=== PATIENT | female | born 1945 | race Caucasian/White ===

== ENCOUNTER 2016-04-02 18:51 | Emergency (ER) | payer OTHER ==
[~2016-04-02] VITALS: Ht 170.2 cm; Wt 54.5 kg
[~2016-04-02 18:51] MED LIST: AMPICILLIN250 MG PO; ASPIR-LOW81 MG PO; ASPIRIN81 M1 PO; ATIVAN0.5 MG PO; COZAAR50 MG PO; LORAZEPAM0.5 MG PO; METOPROLOL SUCC50 MG PO; PREVACID SOLUTA30 MG PO; PREVACID SOLUTAB PO; TOPROL XL50 MG PO; Ultram PO; ~No Medications
[2016-04-03] MEDS ORDERED: PERCOCET 5/31 TABLET PO (02:07)
[2016-04-03 02:49] VITALS: BP 102/68
== END 2016-04-03 02:51 | disposition home or self-care (01) ==
LOC: EME 18:51 → EXP 18:51
DX: M79.605 Pain in left leg (principal); M25.552 Pain in left hip; R26.2 Difficulty in walking, not elsewhere classified; M79.89 Other specified soft tissue disorders; C85.90 Non-Hodgkin lymphoma, unspecified, unspecified site; I10 Essential (primary) hypertension; Z79.82 Long term (current) use of aspirin
CPT/HCPCS: 93971; 99281; 99284; J2270

== ENCOUNTER 2016-10-19 11:54 | Emergency (ER) | payer OTHER ==
[~2016-10-19] VITALS: Ht 167.6 cm; Wt 53.2 kg
[~2016-10-19 11:54] MED LIST changes: +PERCOCET 5/31 TABLET PO
[2016-10-19 12:29] LABS: EOSINOPHIL (%) 0.6 % (0-5); HEMATOCRIT 32.1 % (36.0-46.0); IMMATURE GRANULOCYTE (%) 0.6 % (0.0-0.7); INSTRUMENT ABS NEUTROPHIL CT 5.5 K/uL; LYMPHOCYTE COUNT 0.8 K/uL (1.0-2.8); MCH 29.6 PG (29.0-34.0); MCHC 32.4 G/DL (30.0-36.0); MCV 91.5 FL (83-99); MONOCYTE (%) 7.3 % (3-12); MONOCYTE COUNT 0.5 K/uL (0-0.8); NEUTROPHIL (%) 80.5 % (45-76); NEUTROPHIL COUNT 5.5 K/uL (1.8-6.4); PLATELET COUNT 134 K/uL (156-360); RBC DIS.WIDTH-CV 15.3 % (11.8-14.6); RED BLOOD COUNT 3.51 M/uL (3.80-5.20); WHITE BLOOD COUNT 6.9 K/uL (4.1-10.2)
[2016-10-19 12:44] LABS: CHLORIDE 103 mEq/L (99-109); POTASSIUM 3.9 mEq/L (3.7-5.4); SODIUM 137 mEq/L (136-147)
[2016-10-19 12:46] LABS: GLUCOSE 157 mg/dL (70-99)
[2016-10-19 12:47] LABS: ANION GAP 7 MEQ/L (2-14)
[2016-10-19 12:50] LABS: GFR ESTIMATE (CALCULATED) > 59 mL/min/
[2016-10-19 12:51] LABS: UREA NITROGEN (BUN) 13 mg/dL (9-23)
[2016-10-19] MEDS ORDERED: ELIQUIS5 MG PO (14:56)
[2016-10-19] MEDS ORDERED: AMLODIPINE BESY10 MG PO (15:00)
[2016-10-19] MEDS ORDERED: FUROSEMIDE20 MG PO (15:12)
[2016-10-19] MEDS ORDERED: NORCO 5/3251 TABLET PO (16:18)
[2016-10-19 16:39] VITALS: BP 118/62
== END 2016-10-19 16:40 | disposition home or self-care (01) ==
LOC: EME 11:54
PROVIDERS: Emergency Medicine
DX: S20.229A Contusion of unspecified back wall of thorax, initial encounter (principal); M51.26 Other intervertebral disc displacement, lumbar region; W18.30XA Fall on same level, unspecified, initial encounter; Y93.89 Activity, other specified; Z85.72 Personal history of non-Hodgkin lymphomas; K21.9 Gastro-esophageal reflux disease without esophagitis; I10 Essential (primary) hypertension
CPT/HCPCS: 72100; 72131; 80048; 85025; 99281; 99285

== ENCOUNTER → 2016-11-18 | Outpatient (CLI) | payer OTHER ==
[~2016-11-18] MED LIST changes: +AMLODIPINE BESY10 MG PO; +ELIQUIS5 MG PO; +FUROSEMIDE20 MG PO; +NORCO 5/3251 TABLET PO
== END | disposition home or self-care (01) ==
DX: R13.11 Dysphagia, oral phase (principal); R13.13 Dysphagia, pharyngeal phase; K92.0 Hematemesis; R63.4 Abnormal weight loss
CPT/HCPCS: 92611 GN; G8996 GN; G8997 GN; G8998 GN

== ENCOUNTER 2016-11-30 10:50 | Inpatient (IN) | payer OTHER ==
[~2016-11-30] VITALS: Ht 167.6 cm; Wt 46.0 kg
[2016-11-30 12:54] LABS: EOSINOPHIL (%) 1.2 % (0-5); HEMATOCRIT 32.7 % (36.0-46.0); IMMATURE GRANULOCYTE (%) 0.3 % (0.0-0.7); INSTRUMENT ABS NEUTROPHIL CT 1.9 K/uL; LYMPHOCYTE COUNT 0.9 K/uL (1.0-2.8); MCH 29.5 PG (29.0-34.0); MCHC 31.2 G/DL (30.0-36.0); MCV 94.5 FL (83-99); MEAN PLAT.VOLUME 10.6 uM^3 (9.5-12.4); MONOCYTE (%) 13.8 % (3-12); MONOCYTE COUNT 0.5 K/uL (0-0.8); NEUTROPHIL (%) 57.1 % (45-76); NEUTROPHIL COUNT 1.9 K/uL (1.8-6.4); PLATELET COUNT 127 K/uL (156-360); RBC DIS.WIDTH-SD 58.5 % (39-53); RED BLOOD COUNT 3.46 M/uL (3.80-5.20); WHITE BLOOD COUNT 3.3 K/uL (4.1-10.2)
[2016-11-30 13:02] LABS: CHLORIDE 102 mEq/L (99-109); POTASSIUM 3.6 mEq/L (3.7-5.4); SODIUM 139 mEq/L (136-147)
[2016-11-30 13:04] LABS: GLUCOSE 79 mg/dL (70-99)
[2016-11-30 13:05] LABS: ANION GAP 11 MEQ/L (2-14)
[2016-11-30 13:06] LABS: TOTAL BILIRUBIN 0.6 mg/dL (0.0-1.0)
[2016-11-30 13:08] LABS: ALKALINE PHOSPHATASE 40 IU/L (3-129); GFR ESTIMATE (CALCULATED) > 59 mL/min/
[2016-11-30 13:09] LABS: UREA NITROGEN (BUN) 13 mg/dL (9-23)
[2016-11-30 17:09] LABS: ADD MIUA? NO; BILIRUBIN NEGATIVE; BLOOD NEGATIVE; COLOR STRAW ((YELLOW)); GLUCOSE (STRIP) NEGATIVE; KETONES NEGATIVE; LEUKOCYTES NEGATIVE; NITRITE NEGATIVE; PROTEIN (STRIP) NEGATIVE; SPECIFIC GRAVITY 1.008 (1.000-1.030); UCUL ADDED? NO; UROBILINOGEN 0.2 MG/DL (0.2-1.0)
[2016-11-30 17:37] VITALS: BP 142/86
[2016-11-30 23:36] VITALS: BP 120/70
[2016-12-01 07:15] LABS: INTER. NORMALIZED RATIO 1.3; PROTHROMBIN TIME 14.1 SEC (10.2-12.9)
[2016-12-01 07:17] LABS: PTT 32.8 SEC (25-37)
[2016-12-01 07:22] LABS: ANION GAP 8 MEQ/L (2-14); CHLORIDE 109 MEQ/L (99-109); GFR ESTIMATE (CALCULATED) > 59 mL/min/; GLUCOSE 54 mg/dL (70-99); POTASSIUM 4.1 MEQ/L (3.7-5.4); SAMPLE HEMOLYSIS CHECK 0; SAMPLE ICTERIC CHECK 0; SAMPLE LIPEMIA CHECK 0; SODIUM 140 MEQ/L (136-147); UREA NITROGEN (BUN) 11 mg/dL (9-23)
[2016-12-01 08:06] VITALS: BP 124/65
[2016-12-01 16:18] VITALS: BP 126/62
[2016-12-01 23:42] VITALS: BP 116/74
[2016-12-02 08:22] VITALS: BP 168/78
[2016-12-02 08:23] VITALS: BP 133/88
[2016-12-02 23:40] VITALS: BP 122/60
[2016-12-03 07:48] VITALS: BP 121/58
[2016-12-03 15:53] VITALS: BP 110/50
[2016-12-03 18:05] LABS: ANION GAP 10 MEQ/L (2-14); CHLORIDE 105 MEQ/L (99-109); GFR ESTIMATE (CALCULATED) > 59 mL/min/; POTASSIUM 3.8 MEQ/L (3.7-5.4); SAMPLE HEMOLYSIS CHECK 0; SAMPLE ICTERIC CHECK 0; SAMPLE LIPEMIA CHECK 0; SODIUM 136 MEQ/L (136-147); UREA NITROGEN (BUN) 15 mg/dL (9-23)
[2016-12-03 18:11] LABS: GLUCOSE 99 mg/dL (70-99)
[2016-12-03 19:27] VITALS: BP 126/81
[2016-12-03 23:44] VITALS: BP 114/60
[2016-12-04 07:37] LABS: ALKALINE PHOSPHATASE 40 IU/L (3-129); ANION GAP 5 MEQ/L (2-14); CHLORIDE 108 MEQ/L (99-109); GFR ESTIMATE (CALCULATED) > 59 mL/min/; SAMPLE HEMOLYSIS CHECK 2; SAMPLE ICTERIC CHECK 0; SAMPLE LIPEMIA CHECK 0; SODIUM 140 MEQ/L (136-147); TOTAL BILIRUBIN 0.6 MG/DL (0.0-1.0); UREA NITROGEN (BUN) 15 mg/dL (9-23)
[2016-12-04 07:42] LABS: GLUCOSE 149 mg/dL (70-99); POTASSIUM 4.6 MEQ/L (3.7-5.4)
[2016-12-04 08:53] VITALS: BP 113/74
== END 2016-12-04 12:34 | disposition home health service (06) | DRG 391 ==
LOC: EME 10:50 → 5SOUTH 15:07 → EDOF 15:07 → ENRESERV 15:18 → 5SOUTH 17:18
PROVIDERS: Emergency Medicine; Hospitalist; Specialist
PROC: 0DH63UZ Insertion of Feeding Device into Stomach, Percutaneous Approach (ICD-10-PCS; principal; 2016-12-02)
DX: K22.0 Achalasia of cardia (principal); R13.12 Dysphagia, oropharyngeal phase; D61.818 Other pancytopenia; I48.2 Chronic atrial fibrillation; M35.9 Systemic involvement of connective tissue, unspecified; I10 Essential (primary) hypertension; R64 Cachexia; Z68.1 Body mass index [BMI] 19.9 or less, adult; E43 Unspecified severe protein-calorie malnutrition; E86.0 Dehydration; K29.70 Gastritis, unspecified, without bleeding; E78.5 Hyperlipidemia, unspecified; R62.7 Adult failure to thrive; Z92.21 Personal history of antineoplastic chemotherapy; Z85.72 Personal history of non-Hodgkin lymphomas; K21.9 Gastro-esophageal reflux disease without esophagitis; K44.9 Diaphragmatic hernia without obstruction or gangrene; Z79.01 Long term (current) use of anticoagulants
CPT/HCPCS: 36415; 71010; 80048; 80053; 81003; 85025; 85610; 85730; 94799; 97530 GP; 99281; 99285; J2250; J2270; J3480; J7030; S0028

== ENCOUNTER 2017-02-27 11:30 | Emergency (ER) | payer OTHER ==
[~2017-02-27] VITALS: Ht 165.1 cm; Wt 47.2 kg
[2017-02-27 15:21] VITALS: BP 115/75
== END 2017-02-27 15:21 | disposition home or self-care (01) ==
LOC: EME 11:30
DX: K94.23 Gastrostomy malfunction (principal); I10 Essential (primary) hypertension; E78.5 Hyperlipidemia, unspecified; C85.90 Non-Hodgkin lymphoma, unspecified, unspecified site; Z88.5 Allergy status to narcotic agent; Z88.6 Allergy status to analgesic agent
CPT/HCPCS: 74000; 99281; 99284

== ENCOUNTER → 2017-03-01 | Outpatient (CLI) | payer OTHER ==
[~2017-03-01] VITALS: Ht 167.6 cm; Wt 44.0 kg
== END | disposition home or self-care (01) ==
LOC: AMB 14:00
PROC: 0DH63UZ Insertion of Feeding Device into Stomach, Percutaneous Approach (ICD-10-PCS; principal; 2017-03-01)
DX: K94.23 Gastrostomy malfunction (principal); R63.3 Feeding difficulties; K22.70 Barrett's esophagus without dysplasia; R13.10 Dysphagia, unspecified; Z85.72 Personal history of non-Hodgkin lymphomas; D61.818 Other pancytopenia; K92.0 Hematemesis; R63.4 Abnormal weight loss
CPT/HCPCS: 43760; 93005; J3010

== ENCOUNTER → 2017-05-26 | Outpatient (CLI) | payer OTHER ==
[~2017-05-26] MED LIST changes: +AMOX TR-K CLV1 EAC4 GT; +ATORVASTATIN CA40 MG GT; +CARVEDILOL6.25 MG PO; +COREG3.125 M1 PO; +ELIQUIS5 MG GT; +GABAPENTIN250 MG/5 M GT; +NEURONTIN100 MG PO; +PREDNISOLO20 MG/5 ML PO
== END | disposition home or self-care (01) ==
LOC: RAD 13:14
DX: K94.23 Gastrostomy malfunction (principal)
CPT/HCPCS: 74019

== ENCOUNTER 2017-05-27 09:41 | Inpatient (IN) | payer OTHER ==
[~2017-05-27] VITALS: Ht 167.6 cm; Wt 48.7 kg
[~2017-05-27 09:41] MED LIST changes: -AMOX TR-K CLV1 EAC4 GT; -ATORVASTATIN CA40 MG GT; -CARVEDILOL6.25 MG PO; -COREG3.125 M1 PO; -ELIQUIS5 MG GT; -GABAPENTIN250 MG/5 M GT; -NEURONTIN100 MG PO; -PREDNISOLO20 MG/5 ML PO
[2017-05-27 09:51] LABS: BASOPHIL (%) 0.1 % (0-1); EOSINOPHIL (%) 0.3 % (0-5); HEMATOCRIT 38.8 % (36.0-46.0); HEMOGLOBIN 12.3 G/DL (11.9-15.5); IMMATURE GRANULOCYTE (%) 0.8 % (0.0-0.7); LYMPHOCYTE (%) 10.9 % (15-42); LYMPHOCYTE COUNT 0.9 K/uL (1.0-2.8); MCH 31.1 PG (29.0-34.0); MCHC 31.7 G/DL (30.0-36.0); MCV 98.2 FL (83-99); MONOCYTE COUNT 0.5 K/uL (0-0.8); NEUTROPHIL (%) 81.9 % (45-76); NEUTROPHIL COUNT 6.5 K/uL (1.8-6.4); PLATELET COUNT 195 K/uL (156-360); RBC DIS.WIDTH-CV 16.6 % (11.8-14.6); RBC DIS.WIDTH-SD 60.4 % (39-53); RED BLOOD COUNT 3.95 M/uL (3.80-5.20)
[2017-05-27 10:01] LABS: AMYLASE 129 IU/L (1-118); CHLORIDE 97 mEq/L (99-109); POTASSIUM 3.7 mEq/L (3.7-5.4); SODIUM 137 mEq/L (136-147)
[2017-05-27 10:02] LABS: GLUCOSE 119 mg/dL (70-99); PTT 22.1 SEC (25-37)
[2017-05-27 10:06] LABS: CREATININE 0.6 mg/dL (0.6-1.3); GFR ESTIMATE (CALCULATED) > 59 mL/min/; SERUM ETHYL ALCOHOL < 10 mg/dL
[2017-05-27 10:07] LABS: UREA NITROGEN (BUN) 23 mg/dL (9-23)
[2017-05-27 10:09] LABS: LIPASE 74 U/L (1.0-51.0)
[2017-05-27 10:12] LABS: TROP-I INTERPRETATION NEGATIVE; TROPONIN-I 0.04 ng/mL (0.0-0.30)
[2017-05-27] MEDS ORDERED: COREG3.125 M1 PO (11:26)
[2017-05-27] MEDS ORDERED: PREDNISOLO20 MG/5 ML PO (11:29)
[2017-05-27] MEDS ORDERED: NEURONTIN100 MG PO (11:30)
[2017-05-27 13:25] LABS: APPEARANCE CLEAR ((CLEAR)); BILIRUBIN NEGATIVE; BLOOD NEGATIVE; COLOR YELLOW ((YELLOW)); GLUCOSE (STRIP) NEGATIVE; KETONES NEGATIVE; LEUKOCYTES NEGATIVE; NITRITE NEGATIVE; PROTEIN (STRIP) NEGATIVE; SPECIFIC GRAVITY 1.027 (1.000-1.030); UCUL ADDED? NO; UROBILINOGEN 0.2 MG/DL (0.2-1.0)
[2017-05-27 13:34] LABS: AMPHETAMINE NEGATIVE (500 ng/mL); BARBITURATES NEGATIVE (200 ng/mL); BENZODIAZEPINES NEGATIVE (150 ng/mL); BUPRENORPHINE NEGATIVE (10 ng/mL); COCAINE NEGATIVE (150 ng/mL); METHADONE NEGATIVE (200 ng/mL); METHAMPHETAMINE NEGATIVE (500 ng/mL); OPIATES (MORPHINE) NEGATIVE (100 ng/mL); OXYCODONE NEGATIVE (100 ng/mL); PHENCYCLIDINE NEGATIVE (25 ng/mL); PROPOXYPHENE NEGATIVE (300 ng/mL); THC CANNABINOIDS NEGATIVE (50 ng/mL); TRICYCLIC ANTIDEPRESSANTS NEGATIVE (300 ng/mL)
[2017-05-27 15:09] VITALS: BP 132/90
[2017-05-27 18:43] LABS: HDL CHOLESTEROL 65 MG/DL (Desirable>=50); LDL CHOLESTEROL 108 mg/dL (Desirable<100); NON-HDL CHOLESTEROL 138 mg/dL (Desirable<160); TOTAL CHOLESTEROL 203 mg/dL (Desirable<200); TRIGLYCERIDES 151 MG/DL (Normal: <150)
[2017-05-27 19:00] VITALS: BP 120/91
[2017-05-27 20:00] VITALS: BP 124/83
[2017-05-27 21:00] VITALS: BP 126/87
[2017-05-27 22:00] VITALS: BP 139/96
[2017-05-27 23:00] VITALS: BP 139/86
[2017-05-28] VITALS (19 sets, daily range): BP systolic 109–146; BP diastolic 49–99
[2017-05-28 14:47] LABS: HEMOGLOBIN A1c (GLYCOHEMOGLOB) 5.3 % (Below 5.7)
[2017-05-29] VITALS: BP 128/86
[2017-05-29 06:19] LABS: HEMATOCRIT 36.6 % (36.0-46.0); HEMOGLOBIN 11.5 G/DL (11.9-15.5); MCH 31.1 PG (29.0-34.0); MCHC 31.4 G/DL (30.0-36.0); MCV 98.9 FL (83-99); PLATELET COUNT 154 K/uL (156-360); RBC DIS.WIDTH-SD 62.7 % (39-53); WHITE BLOOD COUNT 6.2 K/uL (4.1-10.2)
[2017-05-29 06:42] LABS: CHLORIDE 102 MEQ/L (99-109); CREATININE 0.4 MG/DL (0.6-1.3); GFR ESTIMATE (CALCULATED) > 59 mL/min/; MAGNESIUM 1.6 mg/dl (1.3-2.7); POTASSIUM 4.1 MEQ/L (3.7-5.4); SODIUM 137 MEQ/L (136-147); UREA NITROGEN (BUN) 22 mg/dL (9-23)
[2017-05-29 06:45] LABS: GLUCOSE 73 mg/dL (70-99)
[2017-05-29 07:14] VITALS: BP 147/76
[2017-05-29 11:01] VITALS: BP 138/85
[2017-05-29 14:55] VITALS: BP 120/66
[2017-05-29 19:35] VITALS: BP 140/71
[2017-05-30] VITALS: BP 133/77
[2017-05-30 04:00] VITALS: BP 151/89
[2017-05-30 07:34] VITALS: BP 144/77
[2017-05-30 15:36] VITALS: BP 141/65
[2017-05-30 20:00] VITALS: BP 136/82
[2017-05-30 23:52] VITALS: BP 132/84
[2017-05-31 03:47] VITALS: BP 144/67
[2017-05-31 06:21] LABS: HEMATOCRIT 38.1 % (36.0-46.0); HEMOGLOBIN 12.4 G/DL (11.9-15.5); MCH 31.8 PG (29.0-34.0); MCHC 32.5 G/DL (30.0-36.0); MCV 97.7 FL (83-99); PLATELET COUNT 146 K/uL (156-360); RBC DIS.WIDTH-CV 16.4 % (11.8-14.6); RBC DIS.WIDTH-SD 59.2 % (39-53); WHITE BLOOD COUNT 5.9 K/uL (4.1-10.2)
[2017-05-31 07:18] VITALS: BP 152/72
[2017-05-31 11:02] VITALS: BP 129/79
[2017-05-31] MEDS ORDERED: AMOX TR-K CLV1 EAC4 GT (11:36)
[2017-05-31] MEDS ORDERED: ELIQUIS5 MG GT (11:36)
[2017-05-31] MEDS ORDERED: CARVEDILOL6.25 MG PO (11:37)
[2017-05-31] MEDS ORDERED: GABAPENTIN250 MG/5 M GT (11:37)
[2017-05-31] MEDS ORDERED: ATORVASTATIN CA40 MG GT (11:37)
[2017-05-31 15:09] VITALS: BP 125/65
== END 2017-05-31 16:55 | DRG 61 ==
LOC: EME → EDBD 09:41 → EME 09:41 → 4WEST 12:26 → EDOF 12:26 → 5SOUTH 12:26 → ENRESERV 12:45 → 4WEST 14:59 → ENRESERV 05-28 18:22 → 5SOUTH 05-28 19:45
PROVIDERS: Emergency Medicine; Hospitalist; Internal Medicine; Internal Medicine Critical Care Medicine; Physician Assistant Medical
DX: I63.411 Cerebral infarction due to embolism of right middle cerebral artery (principal); J18.9 Pneumonia, unspecified organism; Z68.1 Body mass index [BMI] 19.9 or less, adult; E43 Unspecified severe protein-calorie malnutrition; I48.1 Persistent atrial fibrillation; G81.94 Hemiplegia, unspecified affecting left nondominant side; E78.5 Hyperlipidemia, unspecified; R13.10 Dysphagia, unspecified; I27.20 Pulmonary hypertension, unspecified; M35.00 Sjogren syndrome, unspecified; R29.810 Facial weakness; M60.9 Myositis, unspecified; R41.4 Neurologic neglect syndrome; R29.712 NIHSS score 12; I08.1 Rheumatic disorders of both mitral and tricuspid valves; I10 Essential (primary) hypertension; R47.02 Dysphasia; Z85.71 Personal history of Hodgkin lymphoma; Z85.72 Personal history of non-Hodgkin lymphomas; Z91.19 Patient's noncompliance with other medical treatment and regimen; Z92.21 Personal history of antineoplastic chemotherapy; Z91.14 Patient's other noncompliance with medication regimen; Z93.1 Gastrostomy status; Z79.899 Other long term (current) drug therapy; Z79.01 Long term (current) use of anticoagulants; Z72.0 Tobacco use; Z80.7 Family history of other malignant neoplasms of lymphoid, hematopoietic and related tissues
CPT/HCPCS: 70450; 70496; 70498; 71046; 80048; 80061; 81003; 82085 90; 82150; 82550; 82948; 83036; 83690; 83735; 84484; 85025; 85027; 85610; 85730; 86850; 86900; 86901; 87641; 92610 GN; 93005; 93306; 97530 GP; 99281; 99285; G0480; J0456; J0696; J2997; J3475; J7030